=== PATIENT | female | born 1955 | race African-American/Black ===

== ENCOUNTER 2019-08-02 08:03 | Observation (INO) ==
[2019-08-02] MEDS ORDERED: SODIUM CHLORIDE 0.9% 1,000 ML IV STA (09:50)
[2019-08-02 10:03] LABS: Basophils % 0.3 % (0.0-0.8); Eosinophils % 0.2 % (0.00-10.9); Hematocrit 31.9 VOL% (35.7-47.0); Hemoglobin 10.1 GM/DL (12.0-16.0); Immature Granulocytes % 1.2 %; Immature Granulocytes Absolute 0.19 #; Lymphocytes # 7.2 10*3/uL (1.4-4.0); Lymphocytes % 45.8 % (21.3-54.2); Mean Corpuscular HGB Conc 31.7 GM/DL (32-36); Mean Corpuscular Volume 96.1 FL (87-102); Monocytes % 5.4 % (1.7-12.7); Neutrophils % 47.1 % (38.7-73.9); Platelet Count 220 T/CUMM (130-400); Red Blood Count 3.32 MC/CUMM (3.8-5.5); Red Cell Distribution Width 14.2 % (9.3-17.3); White Blood Count 15.8 T/CUMM (4-12)
[2019-08-02 10:08] LABS: Apearance,Urine Slightly Hazy (Clear); Bacteria,Urine Many /HPF (Few); Bilirubin,Urine Negative (Negative); Blood, Urine Moderate mg/dL (Negative); Glucose,Urine (UA) Negative (Negative); Ketones,Urine Negative (Negative); Mucus,Urine Occasional /LPF (Occasional); Nitrite,Urine Negative (Negative); Protein,Urine Negative; RBC,Urine 1 /HPF (0-4); Squamous Epithelial Cell,Urine Occasional /HPF (0-10); Urine Color Yellow (Yellow); Urine Urobilinogen < 2.0 EU/DL (0.2-1.0); WBC,Urine 10 /HPF (0-6)
[2019-08-02 10:09] LABS: INR 2.6
[2019-08-02 10:16] LABS: PT Patient Result 28.3 SECS (9.6-12.2); Partial Thromboplastin Time 45.3 SECS (20.8-36.0)
[2019-08-02 10:33] LABS: Band Neutrophils 1 % (0-10); Eosinophils 1 % (0-10); Hypochromasia 1+; Lymphocytes 40 % (20-55); Platelet Estimate Adequate; Segmented Neutrophils 53 % (50-85); Total Cells Counted 100
[2019-08-02 10:42] LABS: Bilirubin,Total 0.4 MG/DL (0.2-1.0); Calcium 8.2 MG/DL (8.5-10.1); Total Protein 7.3 G/DL (6.4-8.3)
[2019-08-02] MEDS ORDERED: ACETAMINOPHEN 325 MG TABLET PO PRN (12:53)
[2019-08-02] MEDS ORDERED: GLUCAGON 1 MG VIAL IM PRN (12:53)
[2019-08-02] MEDS ORDERED: DEXTROSE 50% 25 GM/50 ML VIAL IV PRN (12:53)
[2019-08-02] MEDS ORDERED: ONDANSETRON 4 MG/2 ML VIAL IV PRN (12:53)
[2019-08-02] MEDS ORDERED: traMADol 50 MG TABLET PO PRN (13:31)
[2019-08-02] MEDS: SODIUM CHLORIDE 0.9% 1,000 ML IV SCH (15:45)
[2019-08-02] MEDS ORDERED: AZITHROMYCIN INJ 500 MG in SODIUM CHLORIDE 0.9% 250 ML IV SCH (16:30)
[2019-08-02] MEDS: INSULIN LISPRO 100 UNIT/ML SUBCUT SCH ×2 (17:58→22:25)
[2019-08-02] MEDS ORDERED: cefTRIAXone 1,000 MG in SYRINGE 1 EACH IV SCH (18:00)
[2019-08-02] MEDS ORDERED: WARFARIN 5 MG TABLET PO SCH (18:00)
[2019-08-02] MEDS ORDERED: ENALAPRIL 10 MG TABLET PO SCH (21:00)
[2019-08-02] MEDS: GABAPENTIN 600 MG TABLET PO SCH (22:24)
[2019-08-02] MEDS: AMIODARONE 200 MG TABLET PO SCH (22:24)
[2019-08-02] MEDS: POTASSIUM CHLORIDE 20 MEQ TABLET PO SCH (22:25)
[2019-08-03 05:25] LABS: Basophils % 0.1 % (0.0-0.8); Hematocrit 29.1 VOL% (35.7-47.0); Hemoglobin 9.2 GM/DL (12.0-16.0); Immature Granulocytes % 1.2 %; Immature Granulocytes Absolute 0.14 #; Lymphocytes # 5.1 10*3/uL (1.4-4.0); Lymphocytes % 42.4 % (21.3-54.2); Mean Corpuscular HGB Conc 31.6 GM/DL (32-36); Mean Corpuscular Volume 95.7 FL (87-102); Mean Platelet Volume 10.2 FL (9.6-12.0); Monocytes % 5.7 % (1.7-12.7); Neutrophils % 50.6 % (38.7-73.9); Platelet Count 217 T/CUMM (130-400); Red Blood Count 3.04 MC/CUMM (3.8-5.5); Red Cell Distribution Width 14.3 % (9.3-17.3); White Blood Count 11.9 T/CUMM (4-12)
[2019-08-03 05:33] LABS: INR 1.7; PT Patient Result 18.8 SECS (9.6-12.2)
[2019-08-03 05:47] LABS: Albumin 2.5 G/DL (3.4-5.0); Bilirubin,Total 1.2 MG/DL (0.2-1.0); Calcium 7.7 MG/DL (8.5-10.1); Osmolality,Calculated 306.5 MOS/KG (273-304); Risk Ratio 2.84; Total Protein 6.5 G/DL (6.4-8.3); VLDL CHOLESTEROL 29.2 MG/DL
[2019-08-03] MEDS: SODIUM CHLORIDE 0.9% 1,000 ML IV SCH (06:38)
[2019-08-03] MEDS ORDERED: HEPARIN DRIP 25,000 UNITS/500 ML PREMIX IV SCH (08:00)
[2019-08-03] MEDS ORDERED: METOPROLOL SUCCINATE XL 100 MG TABLET PO SCH (09:00)
[2019-08-03] MEDS ORDERED: DIGOXIN 0.125 MG TABLET PO SCH (09:00)
[2019-08-03] MEDS ORDERED: PANTOPRAZOLE 40 MG TABLET PO SCH (09:00)
[2019-08-03] MEDS ORDERED: SPIRONOLACTONE 25 MG TABLET PO SCH (09:00)
[2019-08-03] MEDS: INSULIN LISPRO 100 UNIT/ML SUBCUT SCH ×2 (09:32→11:53)
[2019-08-03] MEDS: POTASSIUM CHLORIDE 20 MEQ TABLET PO SCH (09:34)
[2019-08-03] MEDS: GABAPENTIN 600 MG TABLET PO SCH (09:34)
[2019-08-03] MEDS: AMIODARONE 200 MG TABLET PO SCH (09:34)
[2019-08-03] MEDS ORDERED: ENOXAPARIN 100 MG/ML SYRINGE SUBCUT SCH (10:00)
[2019-08-03] MEDS ORDERED: INSULIN GLARGINE 100 UNIT/ML SUBCUT SCH (10:00)
[2019-08-03 11:56] VITALS: BP 118/60
== END 2019-08-03 13:31 | disposition home or self-care (01) ==
LOC: N.ED 08:03 → N.EDINP 08:03 → N.5E 13:15
PROVIDERS: ADMIT Internal Medicine; ATTEND Internal Medicine

== ENCOUNTER 2019-08-16 15:29 | Inpatient (IN) ==
[2019-08-16 17:08] LABS: Basophils # 0.1 10*3/uL (0.0-0.2); Basophils % 0.5 % (0.0-0.8); Eosinophils # 0.1 10*3/uL (0.0-0.87); Hematocrit 39.8 VOL% (35.7-47.0); Hemoglobin 12.7 GM/DL (12.0-16.0); Immature Granulocytes % 0.6 %; Immature Granulocytes Absolute 0.08 #; Lymphocytes # 8.4 10*3/uL (1.4-4.0); Lymphocytes % 62.2 % (21.3-54.2); Mean Corpuscular HGB Conc 31.9 GM/DL (32-36); Mean Corpuscular Volume 96.6 FL (87-102); Mean Platelet Volume 9.6 FL (9.6-12.0); Monocytes % 4.8 % (1.7-12.7); Neutrophils % 30.9 % (38.7-73.9); Platelet Count 288 T/CUMM (130-400); Red Blood Count 4.12 MC/CUMM (3.8-5.5); Red Cell Distribution Width 14.3 % (9.3-17.3); White Blood Count 13.5 T/CUMM (4-12)
[2019-08-16 17:19] LABS: Alanine Aminotransferase 29 U/L (13-56); Albumin 3.9 G/DL (3.4-5.0); Alkaline Phosphatase 152 U/L (45-117); Aspartate Amino Transferase 20 U/L (0-37); Blood Urea Nitrogen 67 MG/DL (7-18); Calcium 9.7 MG/DL (8.5-10.1); Estimated Glom Filtration Rate 26 ML/MIN; Glucose 405 MG/DL (74-106); Osmolality,Calculated 301.4 MOS/KG (273-304); Total Protein 8.8 G/DL (6.4-8.3)
[2019-08-16 17:29] LABS: Apearance,Urine Slightly Hazy (Clear); Bacteria,Urine Many /HPF (Few); Bilirubin,Urine Negative (Negative); Blood, Urine Negative (Negative); Glucose,Urine (UA) >=500 mg/dL (Negative); Ketones,Urine Negative (Negative); Nitrite,Urine Negative (Negative); Protein,Urine Negative; RBC,Urine <1 /HPF (0-4); Squamous Epithelial Cell,Urine Occasional /HPF (0-10); Urine Color Straw (Yellow); Urine Specific Gravity 1.008 (1.001-1.035); Urine Urobilinogen < 2.0 EU/DL (0.2-1.0); WBC,Urine 32 /HPF (0-6)
[2019-08-16] MEDS ORDERED: SODIUM CHLORIDE 0.9% 500 ML IV STA (17:29)
[2019-08-16 17:37] LABS: Eosinophils 4 % (0-10); Lymphocytes 62 % (20-55); Platelet Estimate Normal; Segmented Neutrophils 29 % (50-85); Total Cells Counted 100
[2019-08-16 17:50] LABS: INR 2.6
[2019-08-16 17:51] LABS: PT Patient Result 27.5 SECS (9.6-12.2)
[2019-08-16] MEDS ORDERED: SODIUM CHLORIDE 0.9% 3,150 ML IV ONE (18:43)
[2019-08-16] MEDS ORDERED: MEROPENEM 1,000 MG in SODIUM CHLORIDE 0.9% 100 ML IV STA (18:47)
[2019-08-16] MEDS ORDERED: PIPERACILLIN/TAZOBACTAM 3,375 MG in SODIUM CHLORIDE 0.9% 100 ML IV SCH (19:00)
[2019-08-16] MEDS ORDERED: DEXTROSE 10% 250 ML BAG IV PRN (20:46)
[2019-08-16] MEDS ORDERED: DOCUSATE SODIUM 100 MG CAPSULE PO PRN (20:46)
[2019-08-16] MEDS ORDERED: ACETAMINOPHEN 325 MG TABLET PO PRN (20:46)
[2019-08-16] MEDS ORDERED: ONDANSETRON 4 MG/2 ML VIAL IV PRN (20:46)
[2019-08-16] MEDS ORDERED: GLUCAGON 1 MG VIAL IM PRN (20:46)
[2019-08-16] MEDS ORDERED: LEVOFLOXACIN INJ 500 MG in PREMIX 1 EACH IV ONE (21:00)
[2019-08-16] MEDS: INSULIN REGULAR 100 UNIT/ML SUBCUT SCH (22:21)
[2019-08-17] MEDS: SODIUM CHLORIDE 0.9% 1,000 ML IV SCH ×2 (01:05→13:24)
[2019-08-17 01:27] LABS: Basophils % 0.4 % (0.0-0.8); Eosinophils # 0.2 10*3/uL (0.0-0.87); Eosinophils % 1.4 % (0.00-10.9); Hematocrit 33.4 VOL% (35.7-47.0); Hemoglobin 10.6 GM/DL (12.0-16.0); Immature Granulocytes % 0.4 %; Immature Granulocytes Absolute 0.05 #; Lymphocytes # 6.6 10*3/uL (1.4-4.0); Lymphocytes % 58.5 % (21.3-54.2); Mean Corpuscular HGB Conc 31.7 GM/DL (32-36); Mean Corpuscular Volume 96.5 FL (87-102); Mean Platelet Volume 9.2 FL (9.6-12.0); Monocytes % 6.9 % (1.7-12.7); Neutrophils % 32.4 % (38.7-73.9); Platelet Count 213 T/CUMM (130-400); Red Blood Count 3.46 MC/CUMM (3.8-5.5); Red Cell Distribution Width 14.4 % (9.3-17.3); White Blood Count 11.2 T/CUMM (4-12)
[2019-08-17 01:45] LABS: Osmolality,Calculated 304.3 MOS/KG (273-304)
[2019-08-17 02:09] LABS: Band Neutrophils 3 % (0-10); Eosinophils 2 % (0-10); INR 2.7; Lymphocytes 55 % (20-55); Nucleated Red Blood Cells 1 (0-5); Platelet Estimate Normal; Segmented Neutrophils 33 % (50-85); Total Cells Counted 100
[2019-08-17 02:15] LABS: PT Patient Result 29.2 SECS (9.6-12.2)
[2019-08-17] MEDS: INSULIN REGULAR 100 UNIT/ML SUBCUT SCH ×2 (08:46→12:36)
[2019-08-17 12:23] VITALS: BP 142/63
[2019-08-17] MEDS ORDERED: LEVOFLOXACIN INJ 250 MG in PREMIX 1 EACH IV SCH (21:00)
== END 2019-08-17 13:24 | disposition home health service (06) | DRG 682 ==
LOC: N.ED 15:29 → N.EDINP 19:16 → N.2E 20:01
PROVIDERS: ADMIT Emergency Medicine; ATTEND Emergency Medicine

== ENCOUNTER 2022-03-12 18:10 | Inpatient (IN) ==
[2022-03-12] MEDS ORDERED: SODIUM CHLORIDE 0.9% 1,000 ML IV STA (19:02)
[2022-03-12] MEDS ORDERED: DEXTROSE 50% 25 GM/50 ML SYRINGE IV ONE (19:07)
[2022-03-12 19:20] LABS: Basophils % 0.2 % (0.0-0.8); Eosinophils % 0.4 % (0.00-10.9); Hematocrit 38.4 VOL% (35.7-47.0); Hemoglobin 12.2 GM/DL (12.0-16.0); Immature Granulocytes % 0.5 %; Immature Granulocytes Absolute 0.05 #; Lymphocytes # 5.2 10*3/uL (1.4-4.0); Lymphocytes % 47.5 % (21.3-54.2); Mean Corpuscular HGB Conc 31.8 GM/DL (32-36); Mean Corpuscular Volume 96.5 FL (87-102); Mean Platelet Volume 9.3 FL (9.6-12.0); Monocytes # 0.6 10*3/uL (0.11-0.8); Monocytes % 5.4 % (1.7-12.7); Platelet Count 259 T/CUMM (130-400); Red Blood Count 3.98 MC/CUMM (3.8-5.5); Red Cell Distribution Width 14.9 % (9.3-17.3)
[2022-03-12] MEDS ORDERED: DEXTROSE 50% 25 GM/50 ML VIAL IV STA ×2 (19:45→20:53)
[2022-03-12] MEDS ORDERED: DEXTROSE 50% 25 GM/50 ML SYRINGE IV STA ×2 (19:46→20:55)
[2022-03-12 19:51] LABS: Alanine Aminotransferase 31 U/L (13-56); Albumin 2.9 G/DL (3.4-5.0); Alkaline Phosphatase 99 U/L (45-117); Aspartate Amino Transferase 29 U/L (0-37); Bilirubin,Total < 0.39 MG/DL (0.20-1.00); Blood Urea Nitrogen 53 MG/DL (7-18); Calcium 8.8 MG/DL (8.5-10.1); Carbon Dioxide 24 MMOL/L (21-32); Chloride 103 MMOL/L (98-107); Estimated Glom Filtration Rate 33 ML/MIN; Osmolality,Calculated 278.2 MOS/KG (273-304); Potassium 4.1 MMOL/L (3.5-5.1); Sodium 134 MMOL/L (136-145); Total Protein 7.8 G/DL (6.4-8.2)
[2022-03-12 19:53] LABS: Glucose 47 MG/DL (74-106)
[2022-03-12 19:55] LABS: INR 1.1; PT Patient Result 12.5 SECS (10.5-12.0)
[2022-03-12 21:33] LABS: Bacteria,Urine Occasional /HPF (Few); Mucus,Urine Occasional /LPF (Occasional); RBC,Urine <1 /HPF (0-4); Squamous Epithelial Cell,Urine Occasional /HPF (0-10)
[2022-03-12 21:34] LABS: Urine Appearance Clear (Clear); Urine Color Yellow (Yellow)
[2022-03-12 21:35] LABS: Bilirubin,Urine Negative (Negative); Blood, Urine Negative (Negative); Glucose,Urine (UA) Negative (Negative); Ketones,Urine Negative (Negative); Nitrite,Urine Negative (Negative); Protein,Urine Negative (Negative); Urine Specific Gravity 1.015 (1.001-1.035)
[2022-03-12] MEDS ORDERED: DILTIAZEM 50 MG/10 ML VIAL IV STA (22:06)
[2022-03-12] MEDS ORDERED: GLUCAGON 1 MG VIAL IM PRN (22:20)
[2022-03-12] MEDS ORDERED: DEXTROSE 10% 250 ML BAG IV PRN (22:29)
[2022-03-12] MEDS ORDERED: TORSEMIDE 20 MG TABLET PO SCH (22:31)
[2022-03-12] MEDS ORDERED: DILTIAZEM 25 MG/5 ML VIAL IV STA (22:51)
[2022-03-12] MEDS ORDERED: WARFARIN 7.5 MG TABLET PO ONE (23:29)
[2022-03-13] MEDS: ENOXAPARIN 120 MG/0.8 ML SYRINGE SUBCUT SCH ×3 (01:08→23:46)
[2022-03-13] MEDS: INSULIN REGULAR 100 UNIT/ML SUBCUT SCH ×5 (03:10→17:56)
[2022-03-13 05:23] LABS: Basophils % 0.3 % (0.0-0.8); Eosinophils # 0.1 10*3/uL (0.0-0.87); Eosinophils % 0.8 % (0.00-10.9); Hematocrit 37.5 VOL% (35.7-47.0); Hemoglobin 11.6 GM/DL (12.0-16.0); Immature Granulocytes % 0.5 %; Immature Granulocytes Absolute 0.05 #; Lymphocytes # 4.2 10*3/uL (1.4-4.0); Lymphocytes % 42.4 % (21.3-54.2); Mean Corpuscular HGB Conc 30.9 GM/DL (32-36); Mean Corpuscular Volume 98.4 FL (87-102); Mean Platelet Volume 10.9 FL (9.6-12.0); Monocytes # 1.2 10*3/uL (0.11-0.8); Monocytes % 12.6 % (1.7-12.7); Neutrophils % 43.4 % (38.7-73.9); Platelet Count 189 T/CUMM (130-400); Red Blood Count 3.81 MC/CUMM (3.8-5.5); Red Cell Distribution Width 15.2 % (9.3-17.3); White Blood Count 9.9 T/CUMM (4-12)
[2022-03-13 05:27] LABS: INR 1.3; PT Patient Result 13.9 SECS (10.5-12.0)
[2022-03-13 06:00] LABS: Anisocytosis 1+; Burr Cells 1+; Macrocytosis Slight; Platelet Estimate Normal
[2022-03-13 06:14] LABS: Albumin 2.5 G/DL (3.4-5.0); Bilirubin,Total 0.6 MG/DL (0.20-1.00); Calcium 8.7 MG/DL (8.5-10.1); Osmolality,Calculated 280.2 MOS/KG (273-304); Total Protein 7.3 G/DL (6.4-8.2)
[2022-03-13] MEDS ORDERED: METOPROLOL SUCCINATE XL 25 MG TABLET PO SCH (09:00)
[2022-03-13] MEDS: AMIODARONE 200 MG TABLET PO SCH (09:20)
[2022-03-13] MEDS: CEFUROXIME 250 MG TABLET PO SCH ×2 (09:20→21:28)
[2022-03-13] MEDS: METOPROLOL SUCCINATE XL 25 MG TABLET PO SCH (09:21)
[2022-03-13] MEDS: POTASSIUM CHLORIDE 20 MEQ TABLET PO SCH ×2 (09:21→21:27)
[2022-03-13] MEDS: SIMVASTATIN 10 MG TABLET PO SCH (09:21)
[2022-03-13] MEDS ORDERED: AMIODARONE INJ 150 MG in DEXTROSE 5% 100 ML IV ONE (11:00)
[2022-03-13 11:02] LABS: Free T4 (Free Thyroxine) 0.7 NG/DL (0.76-1.46)
[2022-03-13] MEDS ORDERED: AMIODARONE INJ 450 MG in DEXTROSE 5% 241 ML IV SCH (11:30)
[2022-03-13] MEDS: ACETAMINOPHEN 325 MG TABLET PO PRN ×2 (12:06→23:36)
[2022-03-13] MEDS: WARFARIN 5 MG TABLET PO SCH (17:40)
[2022-03-13] MEDS ORDERED: WARFARIN 3 MG TABLET PO SCH (18:00)
[2022-03-13] MEDS ORDERED: TORSEMIDE 20 MG TABLET PO SCH (21:00)
[2022-03-13] MEDS: GABAPENTIN 600 MG TABLET PO SCH (21:27)
[2022-03-13] MEDS: ONDANSETRON 4 MG/2 ML VIAL IV PRN (21:27)
[2022-03-13] MEDS: DOXYCYCLINE HYCLATE 100 MG CAPSULE PO SCH (21:32)
[2022-03-13] MEDS: AMIODARONE INJ 450 MG in DEXTROSE 5% 241 ML IV SCH ×2 (22:27→23:47)
[2022-03-14] MEDS: INSULIN REGULAR 100 UNIT/ML SUBCUT SCH ×7 (00:03→22:35)
[2022-03-14] MEDS: ONDANSETRON 4 MG/2 ML VIAL IV PRN (05:43)
[2022-03-14] MEDS: LEVOTHYROXINE 125 MCG TABLET PO SCH (05:43)
[2022-03-14] MEDS: ACETAMINOPHEN 325 MG TABLET PO PRN (05:44)
[2022-03-14 05:55] LABS: Basophils % 0.3 % (0.0-0.8); Hematocrit 42.3 VOL% (35.7-47.0); Hemoglobin 12.9 GM/DL (12.0-16.0); Immature Granulocytes % 1.5 %; Lymphocytes % 37.2 % (21.3-54.2); Mean Corpuscular HGB Conc 30.5 GM/DL (32-36); Mean Corpuscular Volume 98.1 FL (87-102); Mean Platelet Volume 9.7 FL (9.6-12.0); Monocytes % 7.2 % (1.7-12.7); NRBC # 0.02 10*3/uL; Neutrophils % 53.8 % (38.7-73.9); Platelet Count 227 T/CUMM (130-400); Red Blood Count 4.31 MC/CUMM (3.8-5.5); Red Cell Distribution Width 15.6 % (9.3-17.3); White Blood Count 13.5 T/CUMM (4-12)
[2022-03-14 06:01] LABS: Calcium 8.5 MG/DL (8.5-10.1); Osmolality,Calculated 293.4 MOS/KG (273-304)
[2022-03-14 06:09] LABS: Potassium 6.5 MMOL/L (3.5-5.1)
[2022-03-14 06:11] LABS: INR 1.7; PT Patient Result 18.5 SECS (10.5-12.0)
[2022-03-14] MEDS ORDERED: INSULIN REGULAR 100 UNIT/ML IV ONE (08:10)
[2022-03-14] MEDS ORDERED: DEXTROSE 10% 250 ML BAG IV ONE (08:10)
[2022-03-14] MEDS ORDERED: CALCIUM GLUCONATE RIDER 1,000 MG/50 ML PREMIX IV ONE (08:10)
[2022-03-14] MEDS ORDERED: SODIUM BICARBONATE 50 MEQ/50 ML VIAL IV ONE (08:27)
[2022-03-14 08:53] LABS: Arterial Base Excess iSTAT -6 MMOL/L (-2.5-2.5); Arterial O2 Saturation iSTAT 95 % (95-100); Arterial PCO2 iSTAT 34 MM HG (35-48); Arterial PO2 iSTAT 76 MM HG (80-95); Arterial Total CO2 iSTAT 20 MMO/L (23-27); Arterial pH iSTAT 7.358 (7.35-7.45)
[2022-03-14] MEDS ORDERED: SODIUM BICARB INJ 50 MEQ in IV BAG 1 EACH IV ONE (09:00)
[2022-03-14] MEDS ORDERED: INSULIN GLARGINE 100 UNIT/ML SUBCUT SCH ×2 (09:00)
[2022-03-14] MEDS: DOXYCYCLINE HYCLATE 100 MG CAPSULE PO SCH ×2 (09:59→21:32)
[2022-03-14] MEDS: AMIODARONE 200 MG TABLET PO SCH (09:59)
[2022-03-14] MEDS: METOPROLOL SUCCINATE XL 25 MG TABLET PO SCH (09:59)
[2022-03-14] MEDS: SIMVASTATIN 10 MG TABLET PO SCH (09:59)
[2022-03-14] MEDS: SODIUM CHLORIDE 0.9% 1,000 ML IV SCH ×6 (11:21→22:13)
[2022-03-14] MEDS: cefTRIAXone 1,000 MG in SODIUM CHLORIDE 0.9% 100 ML IV SCH (11:21)
[2022-03-14 11:28] LABS: Calcium 8.9 MG/DL (8.5-10.1); Osmolality,Calculated 292.8 MOS/KG (273-304)
[2022-03-14 11:32] LABS: Potassium 6.2 MMOL/L (3.5-5.1)
[2022-03-14] MEDS: ENOXAPARIN 120 MG/0.8 ML SYRINGE SUBCUT SCH ×2 (11:51→22:35)
[2022-03-14] MEDS: AMIODARONE INJ 450 MG in DEXTROSE 5% 241 ML IV SCH (12:05)
[2022-03-14] MEDS: WARFARIN 5 MG TABLET PO SCH (18:11)
[2022-03-14] MEDS: GABAPENTIN 600 MG TABLET PO SCH (21:32)
[2022-03-14] MEDS ORDERED: SODIUM POLYSTYRENE SULFATE 15 GM/60 ML BOTTLE PO ONE (22:20)
[2022-03-15] MEDS: INSULIN REGULAR 100 UNIT/ML SUBCUT SCH ×6 (02:17→22:15)
[2022-03-15] MEDS: SODIUM CHLORIDE 0.9% 1,000 ML IV SCH ×3 (04:52→09:25)
[2022-03-15 05:31] LABS: Basophils # 0.1 10*3/uL (0.0-0.2); Basophils % 0.5 % (0.0-0.8); Eosinophils % 0.3 % (0.00-10.9); Hematocrit 36.9 VOL% (35.7-47.0); Hemoglobin 11.5 GM/DL (12.0-16.0); Immature Granulocytes % 2.8 %; Immature Granulocytes Absolute 0.33 #; Lymphocytes # 4.6 10*3/uL (1.4-4.0); Mean Corpuscular HGB Conc 31.2 GM/DL (32-36); Mean Corpuscular Volume 97.9 FL (87-102); Monocytes # 0.7 10*3/uL (0.11-0.8); Monocytes % 5.7 % (1.7-12.7); NRBC # 0.12 10*3/uL; Neutrophils % 51.7 % (38.7-73.9); Platelet Count 181 T/CUMM (130-400); Red Blood Count 3.77 MC/CUMM (3.8-5.5); Red Cell Distribution Width 15.5 % (9.3-17.3); White Blood Count 11.7 T/CUMM (4-12)
[2022-03-15] MEDS: LEVOTHYROXINE 125 MCG TABLET PO SCH (06:11)
[2022-03-15 06:45] LABS: Calcium 8.8 MG/DL (8.5-10.1); Osmolality,Calculated 299.4 MOS/KG (273-304); Potassium 5.5 MMOL/L (3.5-5.1)
[2022-03-15] MEDS ORDERED: DEXTROSE 50% 25 GM/50 ML SYRINGE IV ONE (08:34)
[2022-03-15] MEDS ORDERED: INSULIN REGULAR 100 UNIT/ML IV ONE (08:34)
[2022-03-15 09:37] LABS: INR 2.4; PT Patient Result 24.7 SECS (10.5-12.0)
[2022-03-15] MEDS: DOXYCYCLINE HYCLATE 100 MG CAPSULE PO SCH ×2 (09:45→20:37)
[2022-03-15] MEDS: AMIODARONE 200 MG TABLET PO SCH (09:45)
[2022-03-15] MEDS: METOPROLOL SUCCINATE XL 25 MG TABLET PO SCH (09:46)
[2022-03-15] MEDS: SIMVASTATIN 10 MG TABLET PO SCH (09:46)
[2022-03-15] MEDS: INSULIN GLARGINE 100 UNIT/ML SUBCUT SCH (09:50)
[2022-03-15] MEDS: cefTRIAXone 1,000 MG in SODIUM CHLORIDE 0.9% 100 ML IV SCH (09:53)
[2022-03-15] MEDS: SODIUM BICARB INJ 50 MEQ in SODIUM CHLORIDE 0.45% 1,000 ML IV SCH ×2 (11:23→23:12)
[2022-03-15] MEDS: ENOXAPARIN 120 MG/0.8 ML SYRINGE SUBCUT SCH (12:00)
[2022-03-15] MEDS: WARFARIN 5 MG TABLET PO SCH (18:09)
[2022-03-15] MEDS: GABAPENTIN 600 MG TABLET PO SCH (20:37)
[2022-03-16] MEDS: SODIUM BICARB INJ 50 MEQ in SODIUM CHLORIDE 0.45% 1,000 ML IV SCH (01:00)
[2022-03-16] MEDS: INSULIN REGULAR 100 UNIT/ML SUBCUT SCH ×6 (02:05→21:58)
[2022-03-16 05:30] LABS: Basophils # 0.1 10*3/uL (0.0-0.2); Basophils % 0.4 % (0.0-0.8); Eosinophils # 0.1 10*3/uL (0.0-0.87); Eosinophils % 0.8 % (0.00-10.9); Hematocrit 34.6 VOL% (35.7-47.0); Hemoglobin 10.7 GM/DL (12.0-16.0); Immature Granulocytes % 3.6 %; Immature Granulocytes Absolute 0.44 #; Lymphocytes # 4.3 10*3/uL (1.4-4.0); Lymphocytes % 35.2 % (21.3-54.2); Mean Corpuscular HGB Conc 30.9 GM/DL (32-36); Mean Corpuscular Volume 97.7 FL (87-102); Mean Platelet Volume 10.1 FL (9.6-12.0); Monocytes # 0.8 10*3/uL (0.11-0.8); Monocytes % 6.5 % (1.7-12.7); NRBC # 0.13 10*3/uL; Neutrophils % 53.5 % (38.7-73.9); Platelet Count 118 T/CUMM (130-400); Red Blood Count 3.54 MC/CUMM (3.8-5.5); Red Cell Distribution Width 15.6 % (9.3-17.3); White Blood Count 12.3 T/CUMM (4-12)
[2022-03-16 05:34] LABS: INR 3.1; PT Patient Result 31.5 SECS (10.5-12.0)
[2022-03-16 05:38] LABS: Calcium 7.9 MG/DL (8.5-10.1); Osmolality,Calculated 297.1 MOS/KG (273-304)
[2022-03-16] MEDS: LEVOTHYROXINE 125 MCG TABLET PO SCH (05:50)
[2022-03-16] MEDS: DOXYCYCLINE HYCLATE 100 MG CAPSULE PO SCH ×2 (09:39→22:05)
[2022-03-16] MEDS: SIMVASTATIN 10 MG TABLET PO SCH (09:39)
[2022-03-16] MEDS: METOPROLOL SUCCINATE XL 25 MG TABLET PO SCH (09:40)
[2022-03-16] MEDS: INSULIN GLARGINE 100 UNIT/ML SUBCUT SCH (09:40)
[2022-03-16] MEDS: AMIODARONE 200 MG TABLET PO SCH (09:40)
[2022-03-16] MEDS: cefTRIAXone 1,000 MG in SODIUM CHLORIDE 0.9% 100 ML IV SCH (09:43)
[2022-03-16] MEDS: SODIUM CHLORIDE 0.9% 1,000 ML IV SCH (09:44)
[2022-03-16] MEDS ORDERED: WARFARIN 2.5 MG TABLET PO SCH (18:00)
[2022-03-16] MEDS: GABAPENTIN 600 MG TABLET PO SCH (21:57)
[2022-03-17] MEDS: INSULIN REGULAR 100 UNIT/ML SUBCUT SCH ×4 (03:01→15:06)
[2022-03-17 04:29] LABS: Basophils # 0.1 10*3/uL (0.0-0.2); Basophils % 0.5 % (0.0-0.8); Eosinophils # 0.1 10*3/uL (0.0-0.87); Eosinophils % 0.8 % (0.00-10.9); Hematocrit 33.8 VOL% (35.7-47.0); Hemoglobin 10.5 GM/DL (12.0-16.0); Immature Granulocytes % 2.7 %; Immature Granulocytes Absolute 0.28 #; Lymphocytes % 38.4 % (21.3-54.2); Mean Corpuscular HGB Conc 31.1 GM/DL (32-36); Mean Corpuscular Volume 97.4 FL (87-102); Mean Platelet Volume 10.8 FL (9.6-12.0); Monocytes # 0.9 10*3/uL (0.11-0.8); Monocytes % 8.7 % (1.7-12.7); NRBC # 0.06 10*3/uL; Neutrophils % 48.9 % (38.7-73.9); Platelet Count 83 T/CUMM (130-400); Red Blood Count 3.47 MC/CUMM (3.8-5.5); Red Cell Distribution Width 15.8 % (9.3-17.3); White Blood Count 10.5 T/CUMM (4-12)
[2022-03-17 04:41] LABS: PT Patient Result 40.3 SECS (10.5-12.0)
[2022-03-17 04:53] LABS: Calcium 7.1 MG/DL (8.5-10.1); Potassium 4.3 MMOL/L (3.5-5.1)
[2022-03-17 05:10] LABS: Microcytosis 1+; Ovalocytes Slight
[2022-03-17] MEDS: LEVOTHYROXINE 125 MCG TABLET PO SCH (05:45)
[2022-03-17] MEDS: SODIUM CHLORIDE 0.9% 1,000 ML IV SCH (05:47)
[2022-03-17] MEDS: DOXYCYCLINE HYCLATE 100 MG CAPSULE PO SCH (08:34)
[2022-03-17] MEDS: INSULIN GLARGINE 100 UNIT/ML SUBCUT SCH (08:34)
[2022-03-17] MEDS: AMIODARONE 200 MG TABLET PO SCH (08:34)
[2022-03-17] MEDS: cefTRIAXone 1,000 MG in SODIUM CHLORIDE 0.9% 100 ML IV SCH (08:34)
[2022-03-17] MEDS: SIMVASTATIN 10 MG TABLET PO SCH (08:34)
[2022-03-17] MEDS: METOPROLOL SUCCINATE XL 25 MG TABLET PO SCH (08:34)
[2022-03-17 10:24] LABS: % Iron Saturation 9.2 % (18-50); Ferritin 1897.5 ng/mL (8-252)
[2022-03-17 11:21] LABS: Folate 14.98 NG/ML (5.38-24.0); Vitamin B12 > 2000 PG/ML (211-911)
[2022-03-17 12:25] VITALS: BP 98/56
== END 2022-03-17 16:08 | disposition home health service (06) | DRG 308 ==
LOC: N.ED 18:10 → N.EDINP 18:10 → N.TELES 22:54
PROVIDERS: ADMIT Internal Medicine; ATTEND Internal Medicine

== ENCOUNTER 2022-03-18 18:56 | Inpatient (IN) ==
[2022-03-18] MEDS ORDERED: DILTIAZEM 50 MG/10 ML VIAL IV STA (19:22)
[2022-03-18 19:27] LABS: Basophils % 0.3 % (0.0-0.8); Hematocrit 37.4 VOL% (35.7-47.0); Hemoglobin 11.6 GM/DL (12.0-16.0); Immature Granulocytes % 1.8 %; Immature Granulocytes Absolute 0.26 #; Lymphocytes # 6.4 10*3/uL (1.4-4.0); Lymphocytes % 43.3 % (21.3-54.2); Mean Corpuscular Volume 99.5 FL (87-102); Mean Platelet Volume 10.8 FL (9.6-12.0); Monocytes # 1.1 10*3/uL (0.11-0.8); Monocytes % 7.1 % (1.7-12.7); NRBC # 0.03 10*3/uL; Neutrophils % 47.5 % (38.7-73.9); Platelet Count 109 T/CUMM (130-400); Red Blood Count 3.76 MC/CUMM (3.8-5.5); Red Cell Distribution Width 16.2 % (9.3-17.3); White Blood Count 14.7 T/CUMM (4-12)
[2022-03-18] MEDS ORDERED: DILTIAZEM 25 MG/5 ML VIAL IV STA (19:30)
[2022-03-18] MEDS ORDERED: DILTIAZEM 25 MG/5 ML VIAL IV ONE (19:30)
[2022-03-18 19:34] LABS: Arterial Base Excess iSTAT -8 MMOL/L (-2.5-2.5); Arterial Bicarbonate iSTAT 16.6 MMOL/L (20-26); Arterial O2 Saturation iSTAT 90 % (95-100); Arterial PCO2 iSTAT 31 MM HG (35-48); Arterial PO2 iSTAT 61 MM HG (80-95); Arterial Total CO2 iSTAT 18 MMO/L (23-27); Arterial pH iSTAT 7.335 (7.35-7.45)
[2022-03-18 19:56] LABS: Lymphocytes 35 % (20-55); Metamyelocytes 1 %; Total Cells Counted 100
[2022-03-18 19:57] LABS: Platelet Estimate Decreased
[2022-03-18 20:20] LABS: Albumin 2.5 G/DL (3.4-5.0); Calcium 8.2 MG/DL (8.5-10.1); Osmolality,Calculated 307.4 MOS/KG (273-304); Potassium 4.6 MMOL/L (3.5-5.1); Total Protein 7.6 G/DL (6.4-8.2)
[2022-03-18 20:35] LABS: Partial Thromboplastin Time 42.7 SECS (23.8-32.1)
[2022-03-18] MEDS ORDERED: DEXTROSE 50% 25 GM/50 ML VIAL IV PRN (20:42)
[2022-03-18] MEDS ORDERED: GLUCAGON 1 MG VIAL IM PRN ×2 (20:42)
[2022-03-18] MEDS ORDERED: ONDANSETRON 4 MG/2 ML VIAL IV PRN (20:42)
[2022-03-18] MEDS ORDERED: guaiFENesin/DM ER 600-30 MG TABLET PO PRN (20:42)
[2022-03-18] MEDS ORDERED: MORPHINE 2 MG/1 ML SYRINGE IV PRN (20:42)
[2022-03-18] MEDS ORDERED: PROMETHAZINE 25 MG/1 ML VIAL IM PRN (20:42)
[2022-03-18] MEDS ORDERED: hydrALAZINE 20 MG/1 ML VIAL IV PRN (20:42)
[2022-03-18] MEDS ORDERED: NICOTINE 21 MG/24 HR PATCH TRANSDERM PRN (20:42)
[2022-03-18] MEDS ORDERED: ZALEPLON 5 MG CAPSULE PO PRN (20:42)
[2022-03-18] MEDS ORDERED: diphenhydrAMINE CAP 25 MG CAPSULE PO PRN (20:42)
[2022-03-18 20:44] LABS: INR 5.7
[2022-03-18] MEDS ORDERED: VANCOMYCIN INJ 1,500 MG in SODIUM CHLORIDE 0.9% 500 ML IV STA (20:47)
[2022-03-18] MEDS ORDERED: DEXTROSE 10% 250 ML BAG IV PRN (20:58)
[2022-03-18] MEDS: MEROPENEM 500 MG in SODIUM CHLORIDE 0.9% 100 ML IV SCH (21:15)
[2022-03-18] MEDS: INSULIN LISPRO 100 UNIT/ML SUBCUT SCH (21:16)
[2022-03-18] MEDS ORDERED: VANCOMYCIN INJ 2,500 MG in SODIUM CHLORIDE 0.9% 500 ML IV ONE (22:00)
[2022-03-18] MEDS ORDERED: ALBUTEROL/IPRATROPIUM 3 ML NEB RESP TX ONE (23:20)
[2022-03-19] MEDS: ALBUTEROL/IPRATROPIUM 3 ML NEB RESP TX SCH ×4 (00:01→19:01)
[2022-03-19 01:34] LABS: Basophils # 0.1 10*3/uL (0.0-0.2); Basophils % 0.4 % (0.0-0.8); Hematocrit 33.4 VOL% (35.7-47.0); Hemoglobin 10.5 GM/DL (12.0-16.0); Immature Granulocytes % 2.1 %; Immature Granulocytes Absolute 0.29 #; Lymphocytes # 5.4 10*3/uL (1.4-4.0); Lymphocytes % 39.9 % (21.3-54.2); Mean Corpuscular HGB Conc 31.4 GM/DL (32-36); Mean Corpuscular Volume 97.9 FL (87-102); Mean Platelet Volume 10.6 FL (9.6-12.0); Monocytes # 1.3 10*3/uL (0.11-0.8); Monocytes % 9.3 % (1.7-12.7); NRBC # 0.04 10*3/uL; Neutrophils % 48.3 % (38.7-73.9); Platelet Count 99 T/CUMM (130-400); Red Blood Count 3.41 MC/CUMM (3.8-5.5); Red Cell Distribution Width 15.9 % (9.3-17.3); White Blood Count 13.6 T/CUMM (4-12)
[2022-03-19 01:51] LABS: Calcium 7.7 MG/DL (8.5-10.1); Osmolality,Calculated 309.4 MOS/KG (273-304); Potassium 4.4 MMOL/L (3.5-5.1)
[2022-03-19 02:04] LABS: Lymphocytes 36 % (20-55); Total Cells Counted 100
[2022-03-19 02:05] LABS: Platelet Estimate Adequate; Poikilocytosis Slight
[2022-03-19 02:06] LABS: Anisocytosis Slight
[2022-03-19] MEDS: INSULIN LISPRO 100 UNIT/ML SUBCUT SCH ×4 (10:25→22:28)
[2022-03-19] MEDS: PANTOPRAZOLE 40 MG TABLET PO SCH (10:27)
[2022-03-19] MEDS: MEROPENEM 500 MG in SODIUM CHLORIDE 0.9% 100 ML IV SCH (10:30)
[2022-03-19] MEDS ORDERED: VANCOMYCIN INJ 2,000 MG in SODIUM CHLORIDE 0.9% 500 ML IV PRN (10:38)
[2022-03-19] MEDS ORDERED: TORSEMIDE 20 MG TABLET PO SCH (11:00)
[2022-03-19] MEDS ORDERED: METOPROLOL SUCCINATE XL 25 MG TABLET PO SCH (12:00)
[2022-03-19] MEDS ORDERED: METOPROLOL SUCCINATE XL 25 MG TABLET PO ONE (13:45)
[2022-03-19] MEDS ORDERED: VANCOMYCIN INJ 500 MG in SODIUM CHLORIDE 0.9% 100 ML IV ONE (14:23)
[2022-03-19] MEDS ORDERED: SODIUM BICARB INJ 50 MEQ in SODIUM CHLORIDE 0.45% 1,000 ML IV SCH (14:30)
[2022-03-19 15:27] LABS: Hepatitis B Core IgM Quant 0.07 Index; Hepatitis B Surface Ag Quant < 0.10 Index; Hepatitis B Surface Ag Result Non-Reactive (NonReactive); Hepatitis C Virus Ab Quant 0.22 Index; Hepatitis C Virus Ab Result Non-Reactive (NonReactive)
[2022-03-19] MEDS ORDERED: DIGOXIN 0.25 MG TABLET PO ONE ×2 (18:05→20:34)
[2022-03-19] MEDS ORDERED: METOPROLOL TARTRATE 5 MG/5 ML VIAL IV PRN (20:33)
[2022-03-19] MEDS: GABAPENTIN 300 MG CAPSULE PO SCH (21:02)
[2022-03-19] MEDS: AMIODARONE 200 MG TABLET PO SCH (22:23)
[2022-03-19] MEDS ORDERED: LEVALBUTEROL 1.25 MG/3 ML NEB RESP TX ONE (23:57)
[2022-03-19] MEDS ORDERED: IPRATROPIUM 500 MCG/2.5 ML NEB RESP TX ONE (23:57)
[2022-03-20] MEDS: LEVALBUTEROL 1.25 MG/3 ML NEB RESP TX SCH ×5 (00:12→19:40)
[2022-03-20] MEDS: IPRATROPIUM 500 MCG/2.5 ML NEB RESP TX SCH ×5 (00:12→19:40)
[2022-03-20 01:34] LABS: Basophils # 0.1 10*3/uL (0.0-0.2); Basophils % 0.4 % (0.0-0.8); Eosinophils # 0.2 10*3/uL (0.0-0.87); Eosinophils % 1.3 % (0.00-10.9); Hemoglobin 10.4 GM/DL (12.0-16.0); Immature Granulocytes % 1.8 %; Immature Granulocytes Absolute 0.24 #; Lymphocytes # 5.3 10*3/uL (1.4-4.0); Lymphocytes % 39.5 % (21.3-54.2); Mean Corpuscular HGB Conc 31.5 GM/DL (32-36); Mean Corpuscular Volume 95.9 FL (87-102); Mean Platelet Volume 10.3 FL (9.6-12.0); Monocytes # 1.5 10*3/uL (0.11-0.8); Monocytes % 11.2 % (1.7-12.7); NRBC # 0.03 10*3/uL; Neutrophils % 45.8 % (38.7-73.9); Platelet Count 130 T/CUMM (130-400); Red Blood Count 3.44 MC/CUMM (3.8-5.5); Red Cell Distribution Width 16.1 % (9.3-17.3); White Blood Count 13.4 T/CUMM (4-12)
[2022-03-20 01:45] LABS: INR 4.8; PT Patient Result 47.3 SECS (10.5-12.0)
[2022-03-20 01:51] LABS: Phosphorous 6.3 MG/DL (2.5-4.9); Uric Acid 14.9 MG/DL (2.6-6.0)
[2022-03-20 01:57] LABS: Albumin 2.2 G/DL (3.4-5.0); Bilirubin,Total 0.7 MG/DL (0.20-1.00); Calcium 7.8 MG/DL (8.5-10.1); Osmolality,Calculated 306.4 MOS/KG (273-304); Potassium 4.3 MMOL/L (3.5-5.1); Total Protein 6.8 G/DL (6.4-8.2)
[2022-03-20 03:07] LABS: Total Protein 6.8 G/DL (6.4-8.2)
[2022-03-20] MEDS: LEVOTHYROXINE 125 MCG TABLET PO SCH (05:31)
[2022-03-20 07:31] LABS: Immunoglobulin A (Chem) 403 MG/DL (70-400); Immunoglobulin G (Chem) 1350 MG/DL (700-1600); Immunoglobulin M (Chem) 51 MG/DL (40-230); Total Protein (Chem) 6.8 G/DL (6.4-8.3)
[2022-03-20] MEDS ORDERED: AMIODARONE 200 MG TABLET PO SCH (09:00)
[2022-03-20] MEDS ORDERED: TORSEMIDE 20 MG TABLET PO SCH (09:00)
[2022-03-20] MEDS ORDERED: METOPROLOL SUCCINATE XL 25 MG TABLET PO SCH (09:00)
[2022-03-20] MEDS ORDERED: INSULIN GLARGINE 100 UNIT/ML SUBCUT SCH (09:00)
[2022-03-20 10:10] LABS: Albumin (SPE) Rel % 48.5 %; Alpha 1 (SPE) Rel % 5.1 %; Alpha 2 (SPE) Rel % 11.8 %; Beta (SPE) Rel % 11.8 %; Gamma (SPE) Rel % 22.8 %
[2022-03-20] MEDS: METOPROLOL SUCCINATE XL 50 MG TABLET PO SCH (10:18)
[2022-03-20] MEDS: PANTOPRAZOLE 40 MG TABLET PO SCH (10:18)
[2022-03-20] MEDS: AMIODARONE 200 MG TABLET PO SCH ×2 (10:18→21:07)
[2022-03-20] MEDS: FERROUS SULFATE 325 MG TABLET PO SCH (10:18)
[2022-03-20] MEDS: SIMVASTATIN 10 MG TABLET PO SCH (10:18)
[2022-03-20] MEDS: INSULIN LISPRO 100 UNIT/ML SUBCUT SCH ×4 (10:19→21:43)
[2022-03-20] MEDS: INSULIN GLARGINE 100 UNIT/ML SUBCUT SCH ×2 (10:20→21:44)
[2022-03-20] MEDS: BISACODYL 5 MG TABLET PO PRN (10:22)
[2022-03-20] MEDS ORDERED: VANCOMYCIN INJ 500 MG in SODIUM CHLORIDE 0.9% 100 ML IV ONE (13:29)
[2022-03-20] MEDS: FUROSEMIDE INJ 200 MG in SODIUM CHLORIDE 0.9% 80 ML IV SCH (13:42)
[2022-03-20] MEDS ORDERED: DIGOXIN 0.5 MG/2 ML AMP IV ONE (14:07)
[2022-03-20] MEDS: DOBUTamine 500 MG/250 ML PREMIX IV SCH (16:22)
[2022-03-20] MEDS: GABAPENTIN 300 MG CAPSULE PO SCH (21:07)
[2022-03-21] MEDS: IPRATROPIUM 500 MCG/2.5 ML NEB RESP TX SCH ×4 (02:00→19:49)
[2022-03-21] MEDS: LEVALBUTEROL 1.25 MG/3 ML NEB RESP TX SCH ×4 (02:00→19:49)
[2022-03-21] MEDS: DOBUTamine 500 MG/250 ML PREMIX IV SCH ×2 (04:42→18:57)
[2022-03-21 05:36] LABS: Basophils % 0.3 % (0.0-0.8); Eosinophils # 0.1 10*3/uL (0.0-0.87); Eosinophils % 0.9 % (0.00-10.9); Hematocrit 31.2 VOL% (35.7-47.0); Hemoglobin 9.7 GM/DL (12.0-16.0); Immature Granulocytes % 1.8 %; Immature Granulocytes Absolute 0.23 #; Lymphocytes # 5.1 10*3/uL (1.4-4.0); Mean Corpuscular HGB Conc 31.1 GM/DL (32-36); Mean Corpuscular Volume 96.6 FL (87-102); Mean Platelet Volume 9.9 FL (9.6-12.0); Monocytes # 1.1 10*3/uL (0.11-0.8); Monocytes % 8.2 % (1.7-12.7); NRBC # 0.03 10*3/uL; Neutrophils % 49.8 % (38.7-73.9); Platelet Count 155 T/CUMM (130-400); Red Blood Count 3.23 MC/CUMM (3.8-5.5); White Blood Count 13.1 T/CUMM (4-12)
[2022-03-21 05:58] LABS: Eosinophils 1 % (0-10); Hypochromia Slight; Lymphocytes 25 % (20-55); Microcytosis Slight; Platelet Estimate Adequate; Total Cells Counted 100
[2022-03-21 06:02] LABS: Albumin 2.1 G/DL (3.4-5.0); Bilirubin,Total 0.7 MG/DL (0.20-1.00); Calcium 7.4 MG/DL (8.5-10.1); Potassium 4.1 MMOL/L (3.5-5.1); Total Protein 6.6 G/DL (6.4-8.2)
[2022-03-21] MEDS: LEVOTHYROXINE 125 MCG TABLET PO SCH (06:40)
[2022-03-21] MEDS: DIGOXIN 0.5 MG/2 ML AMP IV SCH (09:29)
[2022-03-21] MEDS: PANTOPRAZOLE 40 MG TABLET PO SCH (09:29)
[2022-03-21] MEDS: METOPROLOL SUCCINATE XL 50 MG TABLET PO SCH (09:29)
[2022-03-21] MEDS: SIMVASTATIN 10 MG TABLET PO SCH (09:29)
[2022-03-21] MEDS: FERROUS SULFATE 325 MG TABLET PO SCH (09:29)
[2022-03-21] MEDS: INSULIN GLARGINE 100 UNIT/ML SUBCUT SCH ×2 (09:30→22:44)
[2022-03-21] MEDS: AMIODARONE 200 MG TABLET PO SCH ×2 (09:30→22:21)
[2022-03-21] MEDS: INSULIN LISPRO 100 UNIT/ML SUBCUT SCH ×4 (09:30→22:43)
[2022-03-21] MEDS: FUROSEMIDE INJ 200 MG in SODIUM CHLORIDE 0.9% 80 ML IV SCH (14:26)
[2022-03-21] MEDS: GABAPENTIN 300 MG CAPSULE PO SCH (22:20)
[2022-03-22] MEDS: IPRATROPIUM 500 MCG/2.5 ML NEB RESP TX SCH ×4 (00:46→19:45)
[2022-03-22] MEDS: LEVALBUTEROL 1.25 MG/3 ML NEB RESP TX SCH ×4 (00:46→19:45)
[2022-03-22 05:36] LABS: Basophils % 0.3 % (0.0-0.8); Eosinophils # 0.1 10*3/uL (0.0-0.87); Hematocrit 31.5 VOL% (35.7-47.0); Hemoglobin 9.6 GM/DL (12.0-16.0); Immature Granulocytes % 1.7 %; Immature Granulocytes Absolute 0.23 #; Lymphocytes # 5.3 10*3/uL (1.4-4.0); Lymphocytes % 38.5 % (21.3-54.2); Mean Corpuscular HGB Conc 30.5 GM/DL (32-36); Mean Corpuscular Volume 97.8 FL (87-102); Mean Platelet Volume 9.8 FL (9.6-12.0); Monocytes # 1.2 10*3/uL (0.11-0.8); Monocytes % 8.6 % (1.7-12.7); NRBC # 0.02 10*3/uL; Neutrophils % 49.9 % (38.7-73.9); Platelet Count 183 T/CUMM (130-400); Red Blood Count 3.22 MC/CUMM (3.8-5.5); White Blood Count 13.7 T/CUMM (4-12)
[2022-03-22 05:46] LABS: INR 3.4; PT Patient Result 34.3 SECS (10.5-12.0); Partial Thromboplastin Time 44.9 SECS (23.8-32.1)
[2022-03-22 05:52] LABS: Calcium 7.7 MG/DL (8.5-10.1); Osmolality,Calculated 310.4 MOS/KG (273-304); Potassium 4.4 MMOL/L (3.5-5.1)
[2022-03-22] MEDS: FUROSEMIDE INJ 200 MG in SODIUM CHLORIDE 0.9% 80 ML IV SCH ×2 (06:46→19:10)
[2022-03-22] MEDS: LEVOTHYROXINE 125 MCG TABLET PO SCH (06:47)
[2022-03-22] MEDS: DOBUTamine 500 MG/250 ML PREMIX IV SCH ×2 (07:12→19:10)
[2022-03-22] MEDS: PANTOPRAZOLE 40 MG TABLET PO SCH (09:31)
[2022-03-22] MEDS: FERROUS SULFATE 325 MG TABLET PO SCH (09:31)
[2022-03-22] MEDS: METOPROLOL SUCCINATE XL 50 MG TABLET PO SCH (09:31)
[2022-03-22] MEDS: SIMVASTATIN 10 MG TABLET PO SCH (09:31)
[2022-03-22] MEDS: AMIODARONE 200 MG TABLET PO SCH ×2 (09:32→21:13)
[2022-03-22] MEDS: BISACODYL 5 MG TABLET PO PRN (09:32)
[2022-03-22] MEDS: INSULIN LISPRO 100 UNIT/ML SUBCUT SCH ×4 (09:32→21:30)
[2022-03-22] MEDS: DIGOXIN 0.5 MG/2 ML AMP IV SCH (09:32)
[2022-03-22] MEDS: INSULIN GLARGINE 100 UNIT/ML SUBCUT SCH ×2 (09:32→21:30)
[2022-03-22] MEDS ORDERED: VANCOMYCIN INJ 1,750 MG in SODIUM CHLORIDE 0.9% 500 ML IV ONE (17:00)
[2022-03-22] MEDS: GABAPENTIN 300 MG CAPSULE PO SCH (21:13)
[2022-03-23] MEDS: FUROSEMIDE INJ 200 MG in SODIUM CHLORIDE 0.9% 80 ML IV SCH ×2 (02:22→17:14)
[2022-03-23 04:57] LABS: Basophils # 0.1 10*3/uL (0.0-0.2); Basophils % 0.3 % (0.0-0.8); Eosinophils # 0.3 10*3/uL (0.0-0.87); Eosinophils % 2.1 % (0.00-10.9); Hematocrit 31.2 VOL% (35.7-47.0); Hemoglobin 9.6 GM/DL (12.0-16.0); Immature Granulocytes % 1.8 %; Immature Granulocytes Absolute 0.26 #; Lymphocytes # 5.9 10*3/uL (1.4-4.0); Lymphocytes % 41.5 % (21.3-54.2); Mean Corpuscular HGB Conc 30.8 GM/DL (32-36); Mean Corpuscular Volume 98.4 FL (87-102); Mean Platelet Volume 9.4 FL (9.6-12.0); Monocytes # 1.1 10*3/uL (0.11-0.8); Monocytes % 7.8 % (1.7-12.7); Neutrophils % 46.5 % (38.7-73.9); Platelet Count 202 T/CUMM (130-400); Red Blood Count 3.17 MC/CUMM (3.8-5.5); Red Cell Distribution Width 16.1 % (9.3-17.3); White Blood Count 14.3 T/CUMM (4-12)
[2022-03-23 05:15] LABS: Partial Thromboplastin Time 44.2 SECS (23.8-32.1)
[2022-03-23 05:23] LABS: Calcium 7.6 MG/DL (8.5-10.1); Osmolality,Calculated 304.4 MOS/KG (273-304); Potassium 4.4 MMOL/L (3.5-5.1)
[2022-03-23] MEDS: LEVOTHYROXINE 125 MCG TABLET PO SCH (05:30)
[2022-03-23] MEDS: DOBUTamine 500 MG/250 ML PREMIX IV SCH (05:31)
[2022-03-23 05:50] LABS: Albumin 2.2 G/DL (3.4-5.0); Bilirubin,Total 0.7 MG/DL (0.20-1.00); Calcium 7.4 MG/DL (8.5-10.1); Osmolality,Calculated 308.1 MOS/KG (273-304); Potassium 4.5 MMOL/L (3.5-5.1); Total Protein 7.2 G/DL (6.4-8.2)
[2022-03-23] MEDS: LEVALBUTEROL 1.25 MG/3 ML NEB RESP TX SCH ×4 (07:10→19:05)
[2022-03-23] MEDS: IPRATROPIUM 500 MCG/2.5 ML NEB RESP TX SCH ×4 (07:10→19:05)
[2022-03-23] MEDS ORDERED: ASPIRIN EC 81 MG TABLET PO SCH (09:00)
[2022-03-23] MEDS: INSULIN LISPRO 100 UNIT/ML SUBCUT SCH ×4 (09:03→22:29)
[2022-03-23] MEDS: SIMVASTATIN 10 MG TABLET PO SCH (09:33)
[2022-03-23] MEDS: METOPROLOL SUCCINATE XL 50 MG TABLET PO SCH (09:33)
[2022-03-23] MEDS: PANTOPRAZOLE 40 MG TABLET PO SCH (09:34)
[2022-03-23] MEDS: AMIODARONE 200 MG TABLET PO SCH ×2 (09:34→22:29)
[2022-03-23] MEDS: FERROUS SULFATE 325 MG TABLET PO SCH (09:34)
[2022-03-23] MEDS: WARFARIN 3 MG TABLET PO SCH (09:34)
[2022-03-23] MEDS: DIGOXIN 0.5 MG/2 ML AMP IV SCH (09:35)
[2022-03-23] MEDS: INSULIN GLARGINE 100 UNIT/ML SUBCUT SCH ×2 (09:36→22:30)
[2022-03-23 09:41] LABS: Kappa Free Light Chain 14.2 mg/dL; Lambda Free Light Chain 15.1 mg/dL
[2022-03-23] MEDS: GABAPENTIN 300 MG CAPSULE PO SCH (22:29)
[2022-03-23] MEDS: ASCORBIC ACID 500 MG TABLET PO SCH (22:29)
[2022-03-24] MEDS: LEVALBUTEROL 1.25 MG/3 ML NEB RESP TX SCH ×4 (01:15→19:21)
[2022-03-24] MEDS: IPRATROPIUM 500 MCG/2.5 ML NEB RESP TX SCH ×4 (01:15→19:21)
[2022-03-24] MEDS: FUROSEMIDE INJ 200 MG in SODIUM CHLORIDE 0.9% 80 ML IV SCH ×4 (01:47→21:06)
[2022-03-24] MEDS: LEVOTHYROXINE 125 MCG TABLET PO SCH (05:31)
[2022-03-24 05:33] LABS: Basophils % 0.2 % (0.0-0.8); Eosinophils # 0.3 10*3/uL (0.0-0.87); Eosinophils % 2.4 % (0.00-10.9); Hematocrit 31.7 VOL% (35.7-47.0); Hemoglobin 9.7 GM/DL (12.0-16.0); Immature Granulocytes % 1.7 %; Immature Granulocytes Absolute 0.22 #; Lymphocytes # 5.8 10*3/uL (1.4-4.0); Lymphocytes % 44.5 % (21.3-54.2); Mean Corpuscular HGB Conc 30.6 GM/DL (32-36); Mean Corpuscular Volume 99.4 FL (87-102); Mean Platelet Volume 9.3 FL (9.6-12.0); Monocytes % 7.9 % (1.7-12.7); Neutrophils % 43.3 % (38.7-73.9); Platelet Count 259 T/CUMM (130-400); Red Blood Count 3.19 MC/CUMM (3.8-5.5); Red Cell Distribution Width 16.1 % (9.3-17.3); White Blood Count 13.1 T/CUMM (4-12)
[2022-03-24 05:39] LABS: INR 2.5; PT Patient Result 25.9 SECS (10.5-12.0)
[2022-03-24 05:51] LABS: Calcium 7.8 MG/DL (8.5-10.1); Osmolality,Calculated 303.2 MOS/KG (273-304); Potassium 4.5 MMOL/L (3.5-5.1)
[2022-03-24 06:16] LABS: Eosinophils 4 % (0-10); Hypochromia Slight; Lymphocytes 46 % (20-55); Metamyelocytes 1 %; Microcytosis 1+; Ovalocytes Slight; Total Cells Counted 100
[2022-03-24 06:18] LABS: Platelet Estimate Normal
[2022-03-24 07:48] LABS: Random Urine Protein (Bench) 34 MG/DL (<11.9)
[2022-03-24] MEDS: INSULIN LISPRO 100 UNIT/ML SUBCUT SCH ×4 (08:58→21:07)
[2022-03-24] MEDS: INSULIN GLARGINE 100 UNIT/ML SUBCUT SCH ×2 (09:52→21:07)
[2022-03-24] MEDS: METOPROLOL SUCCINATE XL 50 MG TABLET PO SCH (09:53)
[2022-03-24] MEDS: PANTOPRAZOLE 40 MG TABLET PO SCH (09:53)
[2022-03-24] MEDS: AMIODARONE 200 MG TABLET PO SCH ×2 (09:53→21:07)
[2022-03-24] MEDS: ASCORBIC ACID 500 MG TABLET PO SCH ×2 (09:53→21:07)
[2022-03-24] MEDS: FERROUS SULFATE 325 MG TABLET PO SCH (09:53)
[2022-03-24] MEDS: WARFARIN 3 MG TABLET PO SCH (10:06)
[2022-03-24] MEDS ORDERED: DIGOXIN 0.125 MG TABLET PO SCH (13:00)
[2022-03-24] MEDS: GABAPENTIN 300 MG CAPSULE PO SCH (21:06)
[2022-03-25] MEDS: LEVALBUTEROL 1.25 MG/3 ML NEB RESP TX SCH ×4 (00:55→19:45)
[2022-03-25] MEDS: IPRATROPIUM 500 MCG/2.5 ML NEB RESP TX SCH ×4 (00:55→19:45)
[2022-03-25 05:05] LABS: Basophils % 0.3 % (0.0-0.8); Eosinophils # 0.3 10*3/uL (0.0-0.87); Eosinophils % 2.3 % (0.00-10.9); Hematocrit 32.3 VOL% (35.7-47.0); Hemoglobin 9.8 GM/DL (12.0-16.0); Immature Granulocytes % 1.6 %; Immature Granulocytes Absolute 0.18 #; Lymphocytes % 45.4 % (21.3-54.2); Mean Corpuscular HGB Conc 30.3 GM/DL (32-36); Mean Corpuscular Volume 100.6 FL (87-102); Mean Platelet Volume 9.1 FL (9.6-12.0); Monocytes # 0.9 10*3/uL (0.11-0.8); Monocytes % 8.5 % (1.7-12.7); Neutrophils % 41.9 % (38.7-73.9); Platelet Count 284 T/CUMM (130-400); Red Blood Count 3.21 MC/CUMM (3.8-5.5); Red Cell Distribution Width 16.1 % (9.3-17.3); White Blood Count 11.1 T/CUMM (4-12)
[2022-03-25 05:12] LABS: INR 2.3; PT Patient Result 24.1 SECS (10.5-12.0)
[2022-03-25 05:21] LABS: Calcium 7.7 MG/DL (8.5-10.1); Osmolality,Calculated 311.5 MOS/KG (273-304); Potassium 4.3 MMOL/L (3.5-5.1)
[2022-03-25] MEDS: FUROSEMIDE INJ 200 MG in SODIUM CHLORIDE 0.9% 80 ML IV SCH ×3 (05:24→21:15)
[2022-03-25] MEDS: LEVOTHYROXINE 125 MCG TABLET PO SCH (05:33)
[2022-03-25 08:03] LABS: Albumin (SPE) 3.3 G/DL (3.2-5.3)
[2022-03-25 08:04] LABS: Alpha 1 (SPE) 0.3 G/DL (0.1-0.4); Alpha 2 (SPE) 0.8 G/DL (0.4-1.0); Beta (SPE) 0.8 G/DL (0.5-1.1); Gamma (SPE) 1.6 G/DL (0.7-1.7)
[2022-03-25] MEDS: INSULIN LISPRO 100 UNIT/ML SUBCUT SCH ×4 (08:05→21:46)
[2022-03-25] MEDS: METOPROLOL TARTRATE 25 MG TABLET PO SCH ×2 (10:17→20:54)
[2022-03-25] MEDS: ASCORBIC ACID 500 MG TABLET PO SCH ×2 (10:18→20:54)
[2022-03-25] MEDS: AMIODARONE 200 MG TABLET PO SCH (10:18)
[2022-03-25] MEDS: PANTOPRAZOLE 40 MG TABLET PO SCH (10:18)
[2022-03-25] MEDS: FERROUS SULFATE 325 MG TABLET PO SCH (10:18)
[2022-03-25] MEDS: INSULIN GLARGINE 100 UNIT/ML SUBCUT SCH ×2 (10:20→21:46)
[2022-03-25] MEDS: WARFARIN 3 MG TABLET PO SCH ×2 (10:42→19:41)
[2022-03-25] MEDS ORDERED: TUBERCULIN SKIN TEST 0.1 ML SYRINGE INTRADERM ONE (16:37)
[2022-03-25] MEDS: GABAPENTIN 300 MG CAPSULE PO SCH (20:54)
[2022-03-26] MEDS: IPRATROPIUM 500 MCG/2.5 ML NEB RESP TX SCH ×5 (00:30→23:58)
[2022-03-26] MEDS: LEVALBUTEROL 1.25 MG/3 ML NEB RESP TX SCH ×5 (00:30→23:58)
[2022-03-26] MEDS: FUROSEMIDE INJ 200 MG in SODIUM CHLORIDE 0.9% 80 ML IV SCH (05:22)
[2022-03-26] MEDS: LEVOTHYROXINE 125 MCG TABLET PO SCH (06:12)
[2022-03-26 06:15] LABS: Basophils % 0.3 % (0.0-0.8); Eosinophils # 0.2 10*3/uL (0.0-0.87); Hematocrit 31.3 VOL% (35.7-47.0); Hemoglobin 9.3 GM/DL (12.0-16.0); Immature Granulocytes % 1.4 %; Immature Granulocytes Absolute 0.16 #; Lymphocytes # 4.6 10*3/uL (1.4-4.0); Lymphocytes % 41.2 % (21.3-54.2); Mean Corpuscular HGB Conc 29.7 GM/DL (32-36); Mean Corpuscular Volume 99.7 FL (87-102); Mean Platelet Volume 9.2 FL (9.6-12.0); Monocytes % 8.8 % (1.7-12.7); Neutrophils % 46.3 % (38.7-73.9); Platelet Count 305 T/CUMM (130-400); Red Blood Count 3.14 MC/CUMM (3.8-5.5); Red Cell Distribution Width 16.1 % (9.3-17.3); White Blood Count 11.1 T/CUMM (4-12)
[2022-03-26 06:18] LABS: PT Patient Result 21.5 SECS (10.5-12.0)
[2022-03-26 06:34] LABS: Calcium 8.1 MG/DL (8.5-10.1); Osmolality,Calculated 311.7 MOS/KG (273-304); Potassium 4.2 MMOL/L (3.5-5.1)
[2022-03-26] MEDS: INSULIN LISPRO 100 UNIT/ML SUBCUT SCH ×4 (08:53→21:58)
[2022-03-26] MEDS: INSULIN GLARGINE 100 UNIT/ML SUBCUT SCH (08:53)
[2022-03-26] MEDS: FERROUS SULFATE 325 MG TABLET PO SCH (08:54)
[2022-03-26] MEDS: ASCORBIC ACID 500 MG TABLET PO SCH ×2 (08:54→21:33)
[2022-03-26] MEDS: AMIODARONE 200 MG TABLET PO SCH (08:54)
[2022-03-26] MEDS: PANTOPRAZOLE 40 MG TABLET PO SCH (08:54)
[2022-03-26] MEDS: METOPROLOL TARTRATE 25 MG TABLET PO SCH ×2 (08:54→21:32)
[2022-03-26] MEDS: ACETAMINOPHEN 325 MG TABLET PO PRN (11:54)
[2022-03-26] MEDS: FUROSEMIDE 80 MG TABLET PO SCH (16:24)
[2022-03-26] MEDS: WARFARIN 3 MG TABLET PO SCH (18:24)
[2022-03-26] MEDS: GABAPENTIN 300 MG CAPSULE PO SCH (21:33)
[2022-03-26] MEDS: ZINC OXIDE 16% PASTE 57 GM TUBE TOP SCH (21:34)
[2022-03-27] MEDS: INSULIN GLARGINE 100 UNIT/ML SUBCUT SCH ×2 (04:53→10:16)
[2022-03-27] MEDS: LEVOTHYROXINE 125 MCG TABLET PO SCH (05:46)
[2022-03-27 06:00] LABS: Basophils % 0.3 % (0.0-0.8); Eosinophils # 0.2 10*3/uL (0.0-0.87); Eosinophils % 1.9 % (0.00-10.9); Hematocrit 30.6 VOL% (35.7-47.0); Hemoglobin 9.2 GM/DL (12.0-16.0); Immature Granulocytes % 1.5 %; Immature Granulocytes Absolute 0.17 #; Lymphocytes # 4.5 10*3/uL (1.4-4.0); Lymphocytes % 40.5 % (21.3-54.2); Mean Corpuscular HGB Conc 30.1 GM/DL (32-36); Mean Platelet Volume 9.1 FL (9.6-12.0); Monocytes # 0.9 10*3/uL (0.11-0.8); Monocytes % 8.4 % (1.7-12.7); Neutrophils % 47.4 % (38.7-73.9); Platelet Count 309 T/CUMM (130-400); Red Blood Count 3.03 MC/CUMM (3.8-5.5); White Blood Count 11.2 T/CUMM (4-12)
[2022-03-27 06:11] LABS: INR 2.1; PT Patient Result 22.3 SECS (10.5-12.0)
[2022-03-27 06:17] LABS: Calcium 8.3 MG/DL (8.5-10.1); Osmolality,Calculated 314.4 MOS/KG (273-304)
[2022-03-27] MEDS: IPRATROPIUM 500 MCG/2.5 ML NEB RESP TX SCH ×2 (07:14→13:40)
[2022-03-27] MEDS: LEVALBUTEROL 1.25 MG/3 ML NEB RESP TX SCH ×2 (07:14→13:40)
[2022-03-27] MEDS: FERROUS SULFATE 325 MG TABLET PO SCH (10:15)
[2022-03-27] MEDS: ASCORBIC ACID 500 MG TABLET PO SCH (10:15)
[2022-03-27] MEDS: FUROSEMIDE 80 MG TABLET PO SCH (10:15)
[2022-03-27] MEDS: PANTOPRAZOLE 40 MG TABLET PO SCH (10:15)
[2022-03-27] MEDS: ZINC OXIDE 16% PASTE 57 GM TUBE TOP SCH (10:16)
[2022-03-27] MEDS: AMIODARONE 200 MG TABLET PO SCH (10:16)
[2022-03-27] MEDS: METOPROLOL TARTRATE 25 MG TABLET PO SCH (10:16)
[2022-03-27] MEDS: ACETAMINOPHEN 325 MG TABLET PO PRN (10:16)
[2022-03-27] MEDS: INSULIN LISPRO 100 UNIT/ML SUBCUT SCH ×2 (12:18→13:58)
[2022-03-27 15:40] VITALS: BP 110/76
[2022-03-28] MEDS ORDERED: TORSEMIDE 20 MG TABLET PO SCH (09:00)
== END 2022-03-27 15:02 | DRG 280 ==
LOC: EDBD → EDUNIT# → N.ED 18:56 → N.EDINP 20:42 → SUATTDRO 20:42 → N.EDINP 21:50 → N.TELES 21:57
PROVIDERS: ADMIT Internal Medicine; ATTEND Internal Medicine